=== PATIENT | male | born 1950 | race Caucasian/White ===

== ENCOUNTER 2024-05-17 09:49 | Inpatient (IN) | payer OTHER ==
[2024-05-17] MEDS ORDERED: METOPROLOL TARTRATE 5 MG/5 ML VIAL ONE (10:37)
[2024-05-17 10:39] VITALS: BMI 29.2
[2024-05-17] MEDS: METOPROLOL TARTRATE 5 MG/5 ML VIAL IVPUSH ONE (10:42)
[2024-05-17 10:43] LABS: BASO % 0.9 % (0-2.0); EOS % 3.3 % (0-4.5); HEMATOCRIT 43.9 % (35.4-49); HEMOGLOBIN 14.8 GM/dL (11.7-16.9); LYMPH % 20.6 % (8-40); MCH 30.5 pg (25.7-33.7); MCHC 33.7 g/dl (32.0-35.9); MEAN CELL VOLUME 90.5 fl (80-96); MEAN PLT VOLUME 9.3 fl (7.5-11.1); MONO % 8.3 % (3.8-10.2); NEUT % 66.9 % (42.8-82.8); PLATELET COUNT 201 10^3/uL (134-434); RBC 4.85 M/mm3 (4.00-5.60); RDW 13.9 % (11.9-15.9); WHITE BLOOD COUNT 7.4 K/mm3 (4.0-10.0)
[2024-05-17 10:49] LABS: INR 0.99 (0.83-1.09); PROTHROMBIN TIME (PATIENT) 11.4 SEC (9.7-13.0)
[2024-05-17 10:52] LABS: ACTIVATED PTT 32.9 SECONDS (25.2-36.5)
[2024-05-17 11:04] LABS: ALBUMIN 4.2 g/dl (3.4-5.0); CALCIUM 10.1 mg/dL (8.5-10.1); MAGNESIUM 2.1 mg/dL (1.8-2.4)
[2024-05-17 11:09] LABS: BILIRUBIN,TOTAL 0.5 mg/dL (0.2-1)
[2024-05-17 11:53] LABS: TOT PROT 7.6 g/dl (6.4-8.2)
[2024-05-17 11:55] LABS: HIV INTERPRETATION NEGATIVE (NEGATIVE)
[2024-05-17] MEDS: INSULIN ASPART SLIDING SCALE (NOVOLOG) 1 VIAL SQ SCH (17:32)
[2024-05-18] MEDS ORDERED: METOPROLOL TARTRATE 25 MG TABLET (FP) ONE (00:12)
[2024-05-18] MEDS: METOPROLOL TARTRATE 25 MG TABLET (FP) PO SCH (00:18)
[2024-05-18 07:33] VITALS: TEMP 97.7
[2024-05-18 07:55] LABS: HEMATOCRIT 40.7 % (35.4-49); MCH 30.9 pg (25.7-33.7); MCHC 34.3 g/dl (32.0-35.9); MEAN CELL VOLUME 90.1 fl (80-96); MEAN PLT VOLUME 9.3 fl (7.5-11.1); PLATELET COUNT 178 10^3/uL (134-434); RBC 4.52 M/mm3 (4.00-5.60); RDW 13.9 % (11.9-15.9); WHITE BLOOD COUNT 6.1 K/mm3 (4.0-10.0)
[2024-05-18 08:16] LABS: POTASSIUM 4.2 mmol/L (3.5-5.1)
[2024-05-18 08:19] LABS: ALBUMIN 3.6 g/dl (3.4-5.0); BLOOD UREA NITROGEN 16.5 mg/dL (7-18); MAGNESIUM 2.1 mg/dL (1.8-2.4)
[2024-05-18 08:22] LABS: CREATININE 0.8 mg/dL (0.55-1.3)
[2024-05-18 08:24] LABS: BILIRUBIN,TOTAL 0.4 mg/dL (0.2-1); TOT PROT 6.4 g/dl (6.4-8.2)
[2024-05-18 08:26] LABS: PHOSPHOROUS 3.5 mg/dL (2.5-4.9)
[2024-05-18 10:48] VITALS: BP 149/73; PULSE 60; RESP 17
[2024-05-18] MEDS ORDERED: ENOXAPARIN NA (PORCINE) 40 MG/0.4 ML DISP.SYRIN SQ ONE (10:54)
[2024-05-18] MEDS: HYDROCHLOROTHIAZIDE 12.5 MG CAPSULE (FP) PO SCH (10:55)
[2024-05-18] MEDS: ENOXAPARIN NA (PORCINE) 40 MG/0.4 ML DISP.SYRIN SQ SCH (10:55)
[2024-05-18] MEDS: LISINOPRIL 10 MG TABLET PO SCH (10:56)
[2024-05-18] MEDS ORDERED: INSULIN ASPART SLIDING SCALE (NOVOLOG) 1 VIAL SQ ONE (12:36)
== END 2024-05-18 13:55 | disposition home or self-care (01) | DRG 310 ==
LOC: JER 09:49 → JERBED 11:38 → OBSVTOIN 11:49
PROVIDERS: ADMIT Internal Medicine; ATTEND Physician Assistant
DX: I47.10 Supraventricular tachycardia, unspecified (principal); E11.9 Type 2 diabetes mellitus without complications; R42 Dizziness and giddiness; I10 Essential (primary) hypertension; E78.5 Hyperlipidemia, unspecified
CPT/HCPCS: 0241U-QW; 36415; 71045-TC-FY; 80053; 82962; 83735; 84100; 84443; 84484; 85025; 85027; 85610; 85730; 86803; 86850; 86900; 86901; 87086; 87389; 93005; 93010; 93306-TC; 99291; G0378